=== PATIENT | male | born 1960 | race Caucasian/White ===

== ENCOUNTER 2021-09-21 15:50 | Inpatient (IN) | payer OTHER, MEDICARE ==
[~2021-09-21] VITALS: Ht 177.8 cm; Wt 77.0 kg
[2021-09-21 16:56] LABS: HEMATOCRIT 30.3 % (39.0-50.0); HEMOGLOBIN 10.7 g/dl (14.0-18.0); IMMATURE GRANULOCYTES 3.8 % (0.0-5.0); MEAN CELL VOLUME 91.3 fL CALC (80.0-100.0); MEAN CORPUSCULAR HGB 32.2 pG CALC (26.0-32.0); MEAN CORPUSCULAR HGB CONC 35.3 g/dL CAL (32.0-36.0); PLATELET COUNT 334 thou/uL (130-400); RED BLOOD COUNT 3.32 mill/uL (4.70-6.10)
[2021-09-21 17:05] LABS: URINE BLOOD DIPSTICK MODERATE (NEGATIVE); URINE COLOR YELLOW; URINE GLUCOSE - DIPSTICK >=1000 mg/dL (NEGATIVE); URINE KETONE >=80 mg/dL (NEGATIVE); URINE LEUK ESTERASE NEGATIVE (NEGATIVE); URINE PH 5.5 (4.5-8.0); URINE PROTEIN - DIPSTICK NEGATIVE (NEG-TRACE); URINE UROBILINOGEN - DIPSTICK 0.2 E.U./dL (0.2)
[2021-09-21 17:06] LABS: URINE BILIRUBIN - DIPSTICK SMALL (NEGATIVE); URINE NITRITE - DIPSTICK NEGATIVE (Negative)
[2021-09-21 17:13] LABS: URINE AMORPH SEDIMENT MANY hpf (NONE-FER)
[2021-09-21 17:14] LABS: GFR FOR AFR.AMER. > 60 ML/MIN (>=60 (CALC)); GFR OTHER RACES > 60 ML/MIN (>=60 (CALC))
[2021-09-21 17:16] LABS: BAND 10 % (0-8)
[2021-09-21 17:32] LABS: MANUAL DIFFERENTIAL YES
[2021-09-21 18:25] LABS: ALBUMIN 3.1 g/dL (3.2-5.0); ALKALINE PHOSPHATASE 132 u/l (38-126); BILIRUBIN, TOTAL 0.8 mg/dL (0.0-1.4); BUN 44 mg/dL (8-23); BUN/CREATININE RATIO 41 (12-20 (CALC)); CARBON DIOXIDE 11 mmol/l (22-30); CHLORIDE 78 mmol/l (95-108); CREATININE 1.1 mg/dL (0.7-1.3); GFR FOR AFR.AMER. > 60 ML/MIN (>=60 (CALC)); GFR OTHER RACES > 60 ML/MIN (>=60 (CALC)); POTASSIUM 4.3 mmol/l (3.5-5.1); SGOT/AST 25 u/l (19-48)
[2021-09-21 18:37] LABS: ANION GAP 31 (6-22 (CALC)); SODIUM 116 mmol/l (137-146)
[2021-09-21 22:36] LABS: BUN 39 mg/dL (8-23); BUN/CREATININE RATIO 47 (12-20 (CALC)); CREATININE 0.8 mg/dL (0.7-1.3); GFR FOR AFR.AMER. > 60 ML/MIN (>=60 (CALC)); GFR OTHER RACES > 60 ML/MIN (>=60 (CALC))
[2021-09-21 22:37] LABS: ANION GAP 24 (6-22 (CALC)); CARBON DIOXIDE 15 mmol/l (22-30); CHLORIDE 89 mmol/l (95-108); POTASSIUM 3.3 mmol/l (3.5-5.1); SODIUM 125 mmol/l (137-146)
[2021-09-21 23:22] VITALS: BP 122/63
[2021-09-21 23:30] VITALS: BP 124/66
[2021-09-21 23:45] VITALS: BP 125/66
[2021-09-22] VITALS (37 sets, daily range): BP systolic 116–172; BP diastolic 44–68
[2021-09-22 05:44] LABS: HEMATOCRIT 28.6 % (39.0-50.0); HEMOGLOBIN 9.7 g/dl (14.0-18.0); MEAN CELL VOLUME 95.7 fL CALC (80.0-100.0); MEAN CORPUSCULAR HGB 32.4 pG CALC (26.0-32.0); MEAN CORPUSCULAR HGB CONC 33.9 g/dL CAL (32.0-36.0); RED BLOOD COUNT 2.99 mill/uL (4.70-6.10); RED CELL DISTRI WIDTH 13.3 % (11.5-15.5)
[2021-09-22 06:02] LABS: ALBUMIN 2.6 g/dL (3.2-5.0); ALKALINE PHOSPHATASE 121 u/l (38-126); ANION GAP 11 (6-22 (CALC)); BILIRUBIN, TOTAL 0.5 mg/dL (0.0-1.4); BUN 33 mg/dL (8-23); BUN/CREATININE RATIO 60 (12-20 (CALC)); CARBON DIOXIDE 23 mmol/l (22-30); CHLORIDE 96 mmol/l (95-108); CREATININE 0.6 mg/dL (0.7-1.3); GFR FOR AFR.AMER. > 60 ML/MIN (>=60 (CALC)); GFR OTHER RACES > 60 ML/MIN (>=60 (CALC)); POTASSIUM 3.2 mmol/l (3.5-5.1); SGOT/AST 26 u/l (19-48); SODIUM 127 mmol/l (137-146); TOTAL PROTEIN 6.2 g/dL (6.3-8.2)
[2021-09-23 03:31] VITALS: BP 124/64
[2021-09-23 05:27] LABS: HEMATOCRIT 25.8 % (39.0-50.0); HEMOGLOBIN 8.6 g/dl (14.0-18.0); IMMATURE GRANULOCYTES 1.6 % (0.0-5.0); MEAN CELL VOLUME 95.9 fL CALC (80.0-100.0); MEAN CORPUSCULAR HGB CONC 33.3 g/dL CAL (32.0-36.0); NEUT# 17.97 thou/uL (1.82-7.42); RED BLOOD COUNT 2.69 mill/uL (4.70-6.10); RED CELL DISTRI WIDTH 13.3 % (11.5-15.5)
[2021-09-23 05:58] LABS: ALBUMIN 2.1 g/dL (3.2-5.0); ALKALINE PHOSPHATASE 108 u/l (38-126); ANION GAP 10 (6-22 (CALC)); BILIRUBIN, TOTAL 0.4 mg/dL (0.0-1.4); BUN 20 mg/dL (8-23); BUN/CREATININE RATIO 51 (12-20 (CALC)); CARBON DIOXIDE 24 mmol/l (22-30); CHLORIDE 99 mmol/l (95-108); CREATININE 0.4 mg/dL (0.7-1.3); GFR FOR AFR.AMER. > 60 ML/MIN (>=60 (CALC)); GFR OTHER RACES > 60 ML/MIN (>=60 (CALC)); POTASSIUM 3.4 mmol/l (3.5-5.1); SGOT/AST 26 u/l (19-48); SODIUM 129 mmol/l (137-146); TOTAL PROTEIN 5.1 g/dL (6.3-8.2)
[2021-09-23 06:17] VITALS: BP 133/67
[2021-09-23 10:14] VITALS: BP 130/56
[2021-09-23 14:18] VITALS: BP 119/62
[2021-09-23 19:00] VITALS: BP 131/65
[2021-09-23 19:04] VITALS: BP 131/65
[2021-09-24] VITALS (7 sets, daily range): BP systolic 109–142; BP diastolic 51–71
[2021-09-24 06:26] LABS: BASO% 0 % (0-3); EOS% 1 % (0-8); HEMATOCRIT 24.6 % (39.0-50.0); HEMOGLOBIN 7.9 g/dl (14.0-18.0); IMMATURE GRANULOCYTES 2.2 % (0.0-5.0); LYMPH% 7 % (15-41); MEAN CELL VOLUME 97.2 fL CALC (80.0-100.0); MEAN CORPUSCULAR HGB 31.2 pG CALC (26.0-32.0); MEAN CORPUSCULAR HGB CONC 32.1 g/dL CAL (32.0-36.0); MONO% 5 % (2-13); NEUT# 15.67 thou/uL (1.82-7.42); NEUT% 86 % (42-76); PLATELET COUNT 330 thou/uL (130-400); RED BLOOD COUNT 2.53 mill/uL (4.70-6.10); RED CELL DISTRI WIDTH 13.5 % (11.5-15.5)
[2021-09-24 07:20] LABS: ALBUMIN 2.2 g/dL (3.2-5.0); ALKALINE PHOSPHATASE 116 u/l (38-126); ANION GAP 9 (6-22 (CALC)); BILIRUBIN, TOTAL 0.3 mg/dL (0.0-1.4); BUN 13 mg/dL (8-23); BUN/CREATININE RATIO 33 (12-20 (CALC)); CARBON DIOXIDE 25 mmol/l (22-30); CHLORIDE 97 mmol/l (95-108); CREATININE 0.4 mg/dL (0.7-1.3); GFR FOR AFR.AMER. > 60 ML/MIN (>=60 (CALC)); GFR OTHER RACES > 60 ML/MIN (>=60 (CALC)); POTASSIUM 3.2 mmol/l (3.5-5.1); SGOT/AST 28 u/l (19-48); SODIUM 128 mmol/l (137-146); TOTAL PROTEIN 5.6 g/dL (6.3-8.2)
[2021-09-24 07:33] LABS: C-REACTIVE PROTEIN 24.1 mg/dL (0-0.9)
[2021-09-25] VITALS (10 sets, daily range): BP systolic 110–137; BP diastolic 61–71
[2021-09-25 05:02] LABS: HEMATOCRIT 25.1 % (39.0-50.0); HEMOGLOBIN 8.1 g/dl (14.0-18.0); MEAN CELL VOLUME 97.7 fL CALC (80.0-100.0); MEAN CORPUSCULAR HGB 31.5 pG CALC (26.0-32.0); MEAN CORPUSCULAR HGB CONC 32.3 g/dL CAL (32.0-36.0); RED BLOOD COUNT 2.57 mill/uL (4.70-6.10); RED CELL DISTRI WIDTH 13.7 % (11.5-15.5)
[2021-09-25 05:22] LABS: ANION GAP 9 (6-22 (CALC)); BUN 12 mg/dL (8-23); BUN/CREATININE RATIO 31 (12-20 (CALC)); CARBON DIOXIDE 26 mmol/l (22-30); CHLORIDE 98 mmol/l (95-108); CREATININE 0.4 mg/dL (0.7-1.3); GFR FOR AFR.AMER. > 60 ML/MIN (>=60 (CALC)); GFR OTHER RACES > 60 ML/MIN (>=60 (CALC)); SODIUM 129 mmol/l (137-146)
[2021-09-25 05:30] LABS: POTASSIUM 3.9 mmol/l (3.5-5.1)
[2021-09-26] VITALS (20 sets, daily range): BP systolic 99–141; BP diastolic 51–71
[2021-09-26 04:56] LABS: HEMOGLOBIN 8.6 g/dl (14.0-18.0); IMMATURE GRANULOCYTES 4.5 % (0.0-5.0); MEAN CELL VOLUME 98.9 fL CALC (80.0-100.0); MEAN CORPUSCULAR HGB 31.5 pG CALC (26.0-32.0); MEAN CORPUSCULAR HGB CONC 31.9 g/dL CAL (32.0-36.0); NEUT# 12.48 thou/uL (1.82-7.42); RED BLOOD COUNT 2.73 mill/uL (4.70-6.10); RED CELL DISTRI WIDTH 13.9 % (11.5-15.5)
[2021-09-26 05:17] LABS: ALBUMIN 2.1 g/dL (3.2-5.0); ALKALINE PHOSPHATASE 69 u/l (38-126); BUN 10 mg/dL (8-23); BUN/CREATININE RATIO 31 (12-20 (CALC)); CARBON DIOXIDE 28 mmol/l (22-30); CHLORIDE 97 mmol/l (95-108); CREATININE 0.3 mg/dL (0.7-1.3); GFR FOR AFR.AMER. > 60 ML/MIN (>=60 (CALC)); GFR OTHER RACES > 60 ML/MIN (>=60 (CALC)); SGOT/AST 22 u/l (19-48); SODIUM 128 mmol/l (137-146); TOTAL PROTEIN 5.5 g/dL (6.3-8.2)
[2021-09-26 05:19] LABS: ANION GAP 8 (6-22 (CALC)); BILIRUBIN, TOTAL 0.5 mg/dL (0.0-1.4)
[2021-09-26 05:20] LABS: POTASSIUM 4.8 mmol/l (3.5-5.1)
[2021-09-26 05:27] LABS: C-REACTIVE PROTEIN 15.7 mg/dL (0-0.9)
[2021-09-27 04:40] VITALS: BP 132/67
[2021-09-27 05:24] LABS: HEMATOCRIT 28.6 % (39.0-50.0); HEMOGLOBIN 8.9 g/dl (14.0-18.0); MEAN CELL VOLUME 100.4 fL CALC (80.0-100.0); MEAN CORPUSCULAR HGB 31.2 pG CALC (26.0-32.0); MEAN CORPUSCULAR HGB CONC 31.1 g/dL CAL (32.0-36.0); RED BLOOD COUNT 2.85 mill/uL (4.70-6.10); RED CELL DISTRI WIDTH 13.7 % (11.5-15.5)
[2021-09-27 05:35] LABS: ANION GAP 10 (6-22 (CALC)); BUN 11 mg/dL (8-23); BUN/CREATININE RATIO 26 (12-20 (CALC)); CARBON DIOXIDE 26 mmol/l (22-30); CHLORIDE 99 mmol/l (95-108); CREATININE 0.4 mg/dL (0.7-1.3); GFR FOR AFR.AMER. > 60 ML/MIN (>=60 (CALC)); GFR OTHER RACES > 60 ML/MIN (>=60 (CALC)); MAGNESIUM 1.9 mg/dL (1.6-2.3); POTASSIUM 3.9 mmol/l (3.5-5.1); SODIUM 131 mmol/l (137-146)
[2021-09-27 07:22] VITALS: BP 128/68
[2021-09-27 08:00] VITALS: BP 128/68
[2021-09-27 15:28] VITALS: BP 116/65
[2021-09-27 19:44] VITALS: BP 131/72
[2021-09-27 23:33] VITALS: BP 144/79
[2021-09-28 02:58] VITALS: BP 138/74
[2021-09-28 07:38] VITALS: BP 123/69
[2021-09-28 07:51] LABS: HEMATOCRIT 24.9 % (39.0-50.0); IMMATURE GRANULOCYTES 2.9 % (0.0-5.0); MEAN CELL VOLUME 97.3 fL CALC (80.0-100.0); MEAN CORPUSCULAR HGB 31.3 pG CALC (26.0-32.0); MEAN CORPUSCULAR HGB CONC 32.1 g/dL CAL (32.0-36.0); NEUT# 13.45 thou/uL (1.82-7.42); RED BLOOD COUNT 2.56 mill/uL (4.70-6.10)
[2021-09-28 08:00] VITALS: BP 123/69
[2021-09-28 08:01] LABS: ALKALINE PHOSPHATASE 86 u/l (38-126); BILIRUBIN, TOTAL 0.4 mg/dL (0.0-1.4); BUN 10 mg/dL (8-23); BUN/CREATININE RATIO 25 (12-20 (CALC)); CARBON DIOXIDE 24 mmol/l (22-30); CHLORIDE 103 mmol/l (95-108); CREATININE 0.4 mg/dL (0.7-1.3); GFR FOR AFR.AMER. > 60 ML/MIN (>=60 (CALC)); GFR OTHER RACES > 60 ML/MIN (>=60 (CALC)); MAGNESIUM 1.8 mg/dL (1.6-2.3); SGOT/AST 38 u/l (19-48); SODIUM 131 mmol/l (137-146); TOTAL PROTEIN 5.5 g/dL (6.3-8.2)
[2021-09-28 08:02] LABS: ANION GAP 9 (6-22 (CALC)); POTASSIUM 4.9 mmol/l (3.5-5.1)
[2021-09-28 15:22] VITALS: BP 110/58
[2021-09-28 16:07] VITALS: BP 110/58
[2021-09-28 18:51] VITALS: BP 124/60
[2021-09-29] VITALS (14 sets, daily range): BP systolic 96–140; BP diastolic 46–71
[2021-09-29 05:34] LABS: HEMATOCRIT 22.7 % (39.0-50.0); HEMOGLOBIN 7.2 g/dl (14.0-18.0); IMMATURE GRANULOCYTES 1.4 % (0.0-5.0); MEAN CELL VOLUME 99.1 fL CALC (80.0-100.0); MEAN CORPUSCULAR HGB 31.4 pG CALC (26.0-32.0); MEAN CORPUSCULAR HGB CONC 31.7 g/dL CAL (32.0-36.0); NEUT# 14.47 thou/uL (1.82-7.42); RED BLOOD COUNT 2.29 mill/uL (4.70-6.10); RED CELL DISTRI WIDTH 14.1 % (11.5-15.5)
[2021-09-29 05:59] LABS: ALBUMIN 2.1 g/dL (3.2-5.0); ALKALINE PHOSPHATASE 116 u/l (38-126); ANION GAP 9 (6-22 (CALC)); BUN 10 mg/dL (8-23); BUN/CREATININE RATIO 21 (12-20 (CALC)); CARBON DIOXIDE 27 mmol/l (22-30); CHLORIDE 98 mmol/l (95-108); CREATININE 0.5 mg/dL (0.7-1.3); GFR FOR AFR.AMER. > 60 ML/MIN (>=60 (CALC)); GFR OTHER RACES > 60 ML/MIN (>=60 (CALC)); MAGNESIUM 1.9 mg/dL (1.6-2.3); POTASSIUM 4.2 mmol/l (3.5-5.1); SGOT/AST 30 u/l (19-48); SODIUM 131 mmol/l (137-146); TOTAL PROTEIN 5.5 g/dL (6.3-8.2)
[2021-09-29 06:03] LABS: BILIRUBIN, TOTAL 0.2 mg/dL (0.0-1.4)
[2021-09-30] VITALS (10 sets, daily range): BP systolic 102–138; BP diastolic 53–70
[2021-09-30 05:40] LABS: HEMATOCRIT 21.7 % (39.0-50.0); IMMATURE GRANULOCYTES 0.8 % (0.0-5.0); MEAN CELL VOLUME 99.1 fL CALC (80.0-100.0); MEAN CORPUSCULAR HGB 31.1 pG CALC (26.0-32.0); MEAN CORPUSCULAR HGB CONC 31.3 g/dL CAL (32.0-36.0); NEUT# 11.7 thou/uL (1.82-7.42); RED BLOOD COUNT 2.19 mill/uL (4.70-6.10); RED CELL DISTRI WIDTH 14.1 % (11.5-15.5)
[2021-09-30 05:46] LABS: ALKALINE PHOSPHATASE 110 u/l (38-126); ANION GAP 7 (6-22 (CALC)); BUN 10 mg/dL (8-23); BUN/CREATININE RATIO 25 (12-20 (CALC)); CARBON DIOXIDE 28 mmol/l (22-30); CHLORIDE 99 mmol/l (95-108); CREATININE 0.4 mg/dL (0.7-1.3); GFR FOR AFR.AMER. > 60 ML/MIN (>=60 (CALC)); GFR OTHER RACES > 60 ML/MIN (>=60 (CALC)); MAGNESIUM 1.8 mg/dL (1.6-2.3); POTASSIUM 3.8 mmol/l (3.5-5.1); SGOT/AST 20 u/l (19-48); SODIUM 130 mmol/l (137-146); TOTAL PROTEIN 5.2 g/dL (6.3-8.2)
[2021-09-30 05:47] LABS: BILIRUBIN, TOTAL 0.1 mg/dL (0.0-1.4)
[2021-09-30 05:58] LABS: HEMOGLOBIN 6.8 g/dl (14.0-18.0)
[2021-09-30 13:50] LABS: HEMATOCRIT 25.4 % (39.0-50.0); HEMOGLOBIN 8.2 g/dl (14.0-18.0)
[2021-10-01] VITALS (9 sets, daily range): BP systolic 122–137; BP diastolic 62–72
[2021-10-01 05:41] LABS: HEMATOCRIT 25.1 % (39.0-50.0); HEMOGLOBIN 8.1 g/dl (14.0-18.0); IMMATURE GRANULOCYTES 0.5 % (0.0-5.0); MEAN CELL VOLUME 99.2 fL CALC (80.0-100.0); MEAN CORPUSCULAR HGB CONC 32.3 g/dL CAL (32.0-36.0); NEUT# 10.04 thou/uL (1.82-7.42); RED BLOOD COUNT 2.53 mill/uL (4.70-6.10); RED CELL DISTRI WIDTH 13.7 % (11.5-15.5)
[2021-10-01 06:06] LABS: ALBUMIN 2.1 g/dL (3.2-5.0); ALKALINE PHOSPHATASE 107 u/l (38-126); ANION GAP 8 (6-22 (CALC)); BUN 8 mg/dL (8-23); BUN/CREATININE RATIO 19 (12-20 (CALC)); CARBON DIOXIDE 28 mmol/l (22-30); CHLORIDE 102 mmol/l (95-108); CREATININE 0.4 mg/dL (0.7-1.3); GFR FOR AFR.AMER. > 60 ML/MIN (>=60 (CALC)); GFR OTHER RACES > 60 ML/MIN (>=60 (CALC)); MAGNESIUM 1.9 mg/dL (1.6-2.3); POTASSIUM 4.3 mmol/l (3.5-5.1); SGOT/AST 19 u/l (19-48); SODIUM 133 mmol/l (137-146); TOTAL PROTEIN 5.5 g/dL (6.3-8.2)
[2021-10-01 06:10] LABS: BILIRUBIN, TOTAL 0.3 mg/dL (0.0-1.4)
[2021-10-01] MEDS ORDERED: PIPERACILLIN SO1 INJ IV (14:30)
[2021-10-01] MEDS ORDERED: HUMALOG100 UNIT SC (14:32)
[2021-10-01] MEDS ORDERED: ULTRAM50 M1 PO (14:32)
[2021-10-01] MEDS ORDERED: PROTONIX40 MG PO (14:33)
== END 2021-10-01 20:43 | DRG 623 ==
LOC: ED 15:50 → ICU 21:18 → MS2 21:18 → ICU 21:18 → MS2 09-22 12:29
PROVIDERS: Family Medicine; Nurse Practitioner; ADMIT Internal Medicine; ATTEND Hospitalist
PROC: 0KBW0ZZ Excision of Left Foot Muscle, Open Approach (ICD-10-PCS; principal; 2021-09-26)
PROC: 02HV33Z Insertion of Infusion Device into Superior Vena Cava, Percutaneous Approach (ICD-10-PCS; 2021-09-28)
PROC: B548ZZA Ultrasonography of Superior Vena Cava, Guidance (ICD-10-PCS; 2021-09-28)
PROC: 0J9D0ZZ Drainage of Right Upper Arm Subcutaneous Tissue and Fascia, Open Approach (ICD-10-PCS; 2021-09-29)
PROC: 30243N1 Transfusion of Nonautologous Red Blood Cells into Central Vein, Percutaneous Approach (ICD-10-PCS; 2021-09-30)
PROC: 0DJD8ZZ Inspection of Lower Intestinal Tract, Via Natural or Artificial Opening Endoscopic (ICD-10-PCS; 2021-10-01)
PROC: 0DB38ZX Excision of Lower Esophagus, Via Natural or Artificial Opening Endoscopic, Diagnostic (ICD-10-PCS; 2021-10-01)
DX: E11.69 Type 2 diabetes mellitus with other specified complication (principal); M86.8X7 Other osteomyelitis, ankle and foot; L03.116 Cellulitis of left lower limb; L03.113 Cellulitis of right upper limb; E87.1 Hypo-osmolality and hyponatremia; L02.612 Cutaneous abscess of left foot; R78.81 Bacteremia; E11.621 Type 2 diabetes mellitus with foot ulcer; L97.529 Non-pressure chronic ulcer of other part of left foot with unspecified severity; E11.10 Type 2 diabetes mellitus with ketoacidosis without coma; I10 Essential (primary) hypertension; E87.6 Hypokalemia; J44.9 Chronic obstructive pulmonary disease, unspecified; K22.70 Barrett's esophagus without dysplasia; K44.9 Diaphragmatic hernia without obstruction or gangrene; M54.50 Low back pain, unspecified; I48.0 Paroxysmal atrial fibrillation; E78.2 Mixed hyperlipidemia; H54.8 Legal blindness, as defined in USA; B96.20 Unspecified Escherichia coli [E. coli] as the cause of diseases classified elsewhere; B95.61 Methicillin susceptible Staphylococcus aureus infection as the cause of diseases classified elsewhere; Z60.2 Problems related to living alone; Z91.81 History of falling; Z20.822 Contact with and (suspected) exposure to COVID-19
CPT/HCPCS: A9579; J0131; J1650; P9016; Q3014; Q9967